=== PATIENT | male | born 1995 | race Caucasian/White ===

== ENCOUNTER 2017-11-08 13:01 | Emergency (ER) | payer SELFPAY ==
[2017-11-08 13:12] VITALS: BP 126/85; PULSE 64; TEMP 98; BMI 25.1
--- NOTE | 2017-11-08 13:30 | PDOC ---
History of Present Illness - General Chief Complaint: Injury Stated Complaint: RT FINGER INJURY Time Seen by Provider: 11/08/17 13:14 History Source: Patient Exam Limitations: No Limitations - History of Present Illness Initial Comments: 11/08/17 13:50 2-year-old male presents the ED with complaints of right thumb pain since yesterday. Patient states was playing [employer] when he jammed his thumb into someone's knee causing it to bend backwards. Patient denies recent injury to the affected area and denies radiation of pain but states has jammed numerous fingers before and never had this much swelling and discomfort. Timing/Duration: 24 hours Severity: mild Associated Symptoms: reports: denies symptoms Past History - Travel Traveled outside of the country in the last 30 days: No - Past Medical History Allergies/Adverse Reactions: Allergies Allergy/AdvReac Type Severity Reaction Status Date / Time No Known Allergies Allergy Verified 11/08/17 13:12 Home Medications: Ambulatory Orders NK [No Known Home Medication] 11/08/17 COPD: No - Suicide/Smoking/Psychosocial Hx Smoking Status: No Smoking History: Never smoked Number of Cigarettes Smoked Daily: 0 Hx Alcohol Use: No Drug/Substance Use Hx: No Substance Use Type: None Patient Lives Alone: No Lives with/in: parents Review of Systems - Review of Systems Able to Perform ROS?: No Constitutional: No: Symptoms Reported Musculoskeletal: Yes: Joint Pain (thumb), Joint Swelling (right thumb) Integumentary: Yes: Bruising *Physical Exam - Vital Signs Last Vital Signs Temp Pulse Resp BP Pulse Ox 98 F 64 18 126/85 99 11/08/17 13:09 11/08/17 13:09 11/08/17 13:09 11/08/17 13:09 11/08/17 13:09 - Physical Exam General Appearance: Yes: Nourished, Appropriately Dressed. No: Apparent Distress Extremity: positive: Normal Capillary Refill, Tender (over generalized right first digit). negative: Normal Inspection, Normal Range of Motion (unable to flex digit) Integumentary: positive: Swelling (generalized right first digit), Ecchymosis Procedures - Splinting Splint Location: Right: Finger Pre-Proc Neuro Vasc Exam: normal Hand-Made Type: metal splint Post-Proc Neuro Vasc Exam: normal Carlos Bandage: 3" Sling: No Good repositioning: Yes ED Treatment Course - RADIOLOGY Radiology Studies Ordered: Category Date Time Status FINGER(S) RIGHT [RAD] Stat Radiology 11/08/17 13:19 Ordered Medical Decision Making - Medical Decision Making 11/08/17 13:34 Patient right thumb injury concerning for fracture. Patient ordered for x-ray. 11/08/17 13:55 X-ray shows proximal phalanx fracture of the right first digit splint applied. Patient to follow up with Dr. Dowd on Thursday at 11:30 *DC/Admit/Observation/Transfer Diagnosis at time of Disposition: Proximal phalanx fracture of finger Qualifiers: Encounter type: initial encounter Finger: thumb Fracture type: closed Fracture alignment: nondisplaced Laterality: right Qualified Code(s): S62.514A - Nondisplaced fracture of proximal phalanx of right thumb, initial encounter for closed fracture - Discharge Dispostion Disposition: HOME Condition at time of disposition: Good - Referrals Referrals: Tobias Dowd MD [Staff Physician] - - Patient Instructions Printed Discharge Instructions: DI for Finger Fracture Additional Instructions: Keep finger elevated and apply ice as much you can tolerate for the next 2-3 days. Please take Motrin 600 mg every 8 hours for inflammation and discomfort. please also follow up with Dr. Dowd Thursday 11:30. - Post Discharge Activity
== END 2017-11-08 13:58 | disposition home or self-care (01) ==
LOC: JERFT 13:01
PROC: 2W3GX1Z Immobilization of Right Thumb using Splint (ICD-10-PCS; principal; 2017-11-08)
DX: S62.514A Nondisplaced fracture of proximal phalanx of right thumb, initial encounter for closed fracture (principal); W51.XXXA Accidental striking against or bumped into by another person, initial encounter; Y93.67 Activity, basketball; Y92.310 Basketball court as the place of occurrence of the external cause; Y99.8 Other external cause status
CPT/HCPCS: 73140-TC-RT-FY; 99281-25

== ENCOUNTER 2018-07-16 16:39 | Emergency (ER) | payer OTHER ==
[2018-07-16] MEDS ORDERED: SODIUM CHLORIDE 1,000 ML IV STA (17:26)
[2018-07-16] MEDS ORDERED: FAMOTIDINE 20 MG/50 ML IVPB 20 MG/50 ML MG IVPB ONE ×2 (17:26→17:44)
[2018-07-16] MEDS ORDERED: methylPREDNISolone NA SUCC 125 MG/2 ML VIAL IVPB ONE (17:26)
[2018-07-16] MEDS ORDERED: ACETAMINOPHEN 325 MG TABLET (FP) PO ONE (17:26)
[2018-07-16 17:27] VITALS: TEMP 100.6; BMI 23.6
--- NOTE | 2018-07-16 17:27 | PDOC ---
Rapid Medical Evaluation Chief Complaint: Allergic Reaction Time Seen by Provider: 07/16/18 17:21 Medical Evaluation: Allergies Allergy/AdvReac Type Severity Reaction Status Date / Time No Known Allergies Allergy Verified 11/08/17 13:12 07/16/18 17:22 c/o allergic reaction to possibly food ate this morning as per patient. reports throat pain and trouble swallowing. yesterdaY WITH VOMITING. PE: patient hives to face, pharyngeal erythema breath sounds clear A: allergic reaction/ anaphylaxis P: labs IV benadryl ; solumedrol pepcid patient to the Er for further management of care. Discharge Disposition - Diagnosis Allergic urticaria Anaphylaxis Qualifiers: Encounter type: initial encounter Qualified Code(s): T78.2XXA - Anaphylactic shock, unspecified, initial encounter - Referrals Referrals: Kevon Razo MD [Primary Care Provider] - - Patient Instructions - Post Discharge Activity
[2018-07-16] MEDS ORDERED: methylPREDNISolone NA SUCC 125 MG/2 ML VIAL ONE ×2 (17:35)
[2018-07-16] MEDS ORDERED: ACETAMINOPHEN 325 MG TABLET (FP) ONE (17:43)
[2018-07-16 17:46] LABS: BASO % 0.4 % (0-2.0); EOS % 0.1 % (0-4.5); HEMATOCRIT 50.5 % (35.4-49); HEMOGLOBIN 16.9 GM/dL (11.7-16.9); LYMPH % 9.3 % (8-40); MCH 29.2 pg (25.7-33.7); MCHC 33.4 g/dl (32.0-35.9); MEAN CELL VOLUME 87.5 fl (80-96); MEAN PLT VOLUME 9.6 fl (7.5-11.1); MONO % 5.1 % (3.8-10.2); NEUT % 85.1 % (42.8-82.8); PLATELET COUNT 223 K/MM3 (134-434); RBC 5.77 M/mm3 (4.00-5.60); RDW 12.8 % (11.9-15.9); WHITE BLOOD COUNT 12.4 K/mm3 (4.0-10.0)
[2018-07-16] MEDS ORDERED: ALBUTEROL SO4 2.5/IPRATROPIUM 0.5 INH SOL 3 ML VIAL.NEB. NEB ONE ×2 (17:51→17:57)
[2018-07-16 18:04] LABS: ANION GAP 12 MMOL/L (8-16); BLOOD UREA NITROGEN 21 mg/dL (7-18); CALCIUM 9.3 mg/dL (8.5-10.1); CHLORIDE 98 mmol/L (98-107); CO2 27 mmol/L (21-32); CREATININE 1.2 mg/dL (0.55-1.3); GLUCOSE,RANDOM 96 mg/dL (74-106); POTASSIUM 3.7 mmol/L (3.5-5.1); SODIUM 137 mmol/L (136-145)
[2018-07-16] MEDS ORDERED: ONDANSETRON 4 MG/2 ML VIAL IVPUSH ONE (18:12)
[2018-07-16] MEDS ORDERED: ONDANSETRON 4 MG/2 ML VIAL ONE (18:15)
[2018-07-16] MEDS ORDERED: EPINEPHrine/PF 1 MG/1 ML (1:1,000) AMPULE IM ONE (18:21)
--- NOTE | 2018-07-16 18:22 | PDOC ---
Attending Attestation - Resident Resident Name: JoaquinRonaldo - ED Attending Attestation I have performed the following: I have examined & evaluated the patient, The case was reviewed & discussed with the resident, I agree w/resident's findings & plan, Exceptions are as noted - HPI HPI: 07/16/18 18:10 22 yo male h/o allergic reactions in the past ( last 2 years ago) here with c/o 24 hours n/v/ d. throughout the night started having urticarial rash, welts, face neck and trunk. back. no difficulty breathing, but feels throat is sore. no new known food triggers, tolerated po today. c/o chills. and mild headache. no new meds. no new lotion or detergent. did not take anything prior to arrival. unsure what caused his allergic reaction 2 years ago, had epi pen which he has since lost. no lip or tongue swelling. - Physicial Exam PE: 07/16/18 18:14 awake alert . severe urticarial / welts rash over face, trunk and back. no uvular edema. no lip swelling. no tongue swelling. no lip swelling. lung decreased expiration at bases. no audible wheezing. abd soft nt nd. ext wwp. skin see description above. - Medical Decision Making 07/16/18 18:22 22 yo male with n/v now urticarial rash. concerns for allergic reaction anaphylaxis. unknown exposure. also possible viral exanthem. no sick contacts. no travel. plan pepcid, benadryl, solumedrol. will give epe as concerns n/v may be anaphylactic equivalent. zofran. reasses after observation.
[2018-07-16] MEDS ORDERED: EPINEPHrine/PF 1 MG/1 ML (1:1,000) AMPULE ONE (18:26)
[2018-07-16] MEDS: EPINEPHrine 1:1,000 0.3 MG/0.3 ML SYR IM ONE ×2 (18:29→18:31)
[2018-07-16 18:46] VITALS: BP 127/78; PULSE 98
--- NOTE | 2018-07-16 22:03 | PDOC ---
History of Present Illness - General Chief Complaint: Allergic Reaction Stated Complaint: Allergic Reaction Time Seen by Provider: 07/16/18 17:21 History Source: Patient Exam Limitations: No Limitations - History of Present Illness Initial Comments: 07/16/18 22:05 22 yo M with no pmhx presents to the ED with hives, SOB, and nausea/vomiting. Per the patient, he states he had vomiting commence yesterday in the afternoon while at work. He denies eating unusual food products. The patient subsequently developed hives during the night that spread from the head to the trunk, right arm, back, and groin area by 12pm today. He starting having headaches and felt feverish from 12 pm onwards. Endorses the following: throat pain, generalized itch throughout body, and headaches. Denies the following: recent lotion change , recent medication change, recent job/living arrangement change, tongue swelling, and muffled voice. His last attack was 2 years ago and was worked up and a cause was not found. He states he used an epi-pen then, but does not have one currently now. Pmhx: None Shx: right thumb surgery Meds: None Allergies: NKDA Social hx: Denies tobacco and alcohol use. Endorses marijuana use with last use 1 week ago Past History - Past Medical History Allergies/Adverse Reactions: Allergies Allergy/AdvReac Type Severity Reaction Status Date / Time No Known Allergies Allergy Verified 07/16/18 17:21 Home Medications: Ambulatory Orders Diphenhydramine HCl 25 mg PO QID #28 capsule 07/16/18 Epinephrine [Epipen] 0.3 mg IJ PRN #1 auto.injct 07/16/18 predniSONE [Deltasone -] 40 mg PO DAILY #3 tablet 07/16/18 COPD: No - Suicide/Smoking/Psychosocial Hx Smoking Status: No Smoking History: Never smoked Number of Cigarettes Smoked Daily: 0 Hx Alcohol Use: No Drug/Substance Use Hx: No Substance Use Type: None Review of Systems - Review of Systems Able to Perform ROS?: Yes Is the patient limited Swedish proficient: No Constitutional: Yes: Fever. No: Chills, Diaphoresis HEENTM: Yes: Throat Pain, Throat Swelling. No: Recent change in vision, Nose Pain, Mouth Pain, Mouth Swelling Respiratory: No: Shortness of Breath Cardiac (ROS): No: Chest Pain, Lightheadedness, Palpitations, Syncope, Chest Tightness ABD/GI: Yes: Diarrhea, Nausea, Vomiting. No: Constipated, Rectal Bleeding, Tarry Stools : No: Burning, Dysuria, Hematuria Musculoskeletal: No: Back Pain Integumentary: Yes: Rash (uritcaria throughout body) Neurological: No: Headache, Numbness, Paresthesia, Tingling, Tremors, Ataxia Psychiatric: No: Stressors Endocrine: No: Unexplained Weight Gain Hematologic/Lymphatic: No: Anemia *Physical Exam - Vital Signs Last Vital Signs Temp Pulse Resp BP Pulse Ox 100.6 F H 98 H 18 127/78 98 07/16/18 17:22 07/16/18 18:45 07/16/18 18:45 07/16/18 18:45 07/16/18 18:45 - Physical Exam General Appearance: Yes: Nourished, Appropriately Dressed, Other (looks uncomfortable) HEENT: positive: EOMI, MCKENNA, Normal Voice, Symmetrical. negative: Normal ENT Inspection, TMs Normal, Pharynx Normal (erythema in the posterior arches), Tonsillar Exudate, Tonsillar Erythema, Nasal Congestion, Rhinorrhea, Sinus Tenderness Neck: positive: Trachea midline. negative: Lymphadenopathy (R), Lymphadenopathy (L) Respiratory/Chest: positive: Lungs Clear, Decreased Breath Sounds. negative: Chest Tender, Respiratory Distress, Accessory Muscle Use, Rhonchi, Stridor, Wheezing, Hyperresonant Cardiovascular: positive: Regular Rhythm, S1, S2, Tachycardia. negative: Systolic Murmur Gastrointestinal/Abdominal: positive: Normal Bowel Sounds, Flat, Soft. negative : Tender, Pulsatile Mass Lymphatic: negative: Adenopathy Musculoskeletal: positive: Normal Inspection. negative: CVA Tenderness Extremity: positive: Normal Capillary Refill, Normal Inspection, Normal Range of Motion. negative: Tender Integumentary: positive: Dry, Hives (face (largest on left forehead), bilateral arms, chest, abdomen, back, and groin) Neurologic: positive: beef grader II-XII NML intact, Fully Oriented, Alert, Normal Mood/ Affect, Normal Response, Motor Strength 5/5 ED Treatment Course - LABORATORY CBC & Chemistry Diagram: 07/16/18 17:35 07/16/18 17:35 - ADDITIONAL ORDERS Additional order review: Laboratory Results 07/16/18 17:35 Sodium 137 Potassium 3.7 Chloride 98 Carbon Dioxide 27 Anion Gap 12 BUN 21 H Creatinine 1.2 Creat Clearance w eGFR > 60 Random Glucose 96 Calcium 9.3 07/16/18 17:35 RBC 5.77 H MCV 87.5 MCHC 33.4 RDW 12.8 MPV 9.6 Neutrophils % 85.1 H Lymphocytes % 9.3 D Monocytes % 5.1 Eosinophils % 0.1 D Basophils % 0.4 - Medications Given in the ED: ED Medications Discontinued Medications Generic Name Dose Route Start Last Admin Trade Name Ulysses PRN Reason Stop Dose Admin Acetaminophen 650 mg 07/16/18 17:26 07/16/18 17:45 Tylenol - PO 07/16/18 17:27 650 mg ONCE ONE Administration Albuterol/Ipratropium 1 amp 07/16/18 17:51 07/16/18 18:00 Duoneb - NEB 07/16/18 17:52 1 amp ONCE ONE Administration Diphenhydramine HCl 50 mg 07/16/18 17:26 07/16/18 17:39 Benadryl Injection - IVPB 07/16/18 17:27 50 mg ONCE ONE Administration Epinephrine 0.3 mg 07/16/18 18:14 07/16/18 18:31 Epipen 0.3mg - IM 07/16/18 18:15 Not Given ONCE ONE Epinephrine HCl 300 mcg 07/16/18 18:21 07/16/18 18:30 Epinephrine 1:1000 P/F - IM 07/16/18 18:22 300 mcg ONCE ONE Administration Famotidine/Sodium Chloride 20 mg in 50 mls @ 100 mls/hr 07/16/18 17:26 17:49 Pepcid 20 Mg Premixed Ivpb - IVPB 07/16/18 17:55 100 mls/hr ONCE ONE Administration Sodium Chloride 1,000 mls @ 1,000 mls/hr 07/16/18 17:26 07/16/18 17:39 Normal Saline - IV 07/16/18 18:25 1,000 mls/hr ASDIR STA Administration Methylprednisolone Sodium Succinate 125 mg 07/16/18 17:26 07/16/18 17:45 Solu-Medrol - IVPB 07/16/18 17:27 125 mg ONCE ONE Administration Ondansetron HCl 4 mg 07/16/18 18:12 07/16/18 18:18 Zofran Injection IVPUSH 07/16/18 18:13 4 mg ONCE ONE Administration Medical Decision Making - Medical Decision Making 07/17/18 03:06 22 yo M with no pmhx presents to the ED with hives, SOB, and nausea/vomiting. Per the patient, he states he had vomiting commence yesterday in the afternoon while at work. Initial vitals: Intake & Output 07/14/18 07/15/18 07/16/18 07/17/18 23:59 23:59 23:59 23:59 Weight 72.575 kg Initial Vital Signs Temp Pulse Resp BP Pulse Ox 100.6 F H 135 H 19 127/74 96 07/16/18 17:22 07/16/18 17:22 07/16/18 17:22 07/16/18 17:22 07/16/18 17:22 Work up: urticaria: anaphylaxis (known vs unknown antigen exposure vs ?viral exanthem) vs allergic reaction vs contact dermatitis. Laboratory Tests 07/16/18 07/16/18 17:35 17:35 WBC 12.4 H RBC 5.77 H Hgb 16.9 Hct 50.5 H MCV 87.5 MCH 29.2 MCHC 33.4 RDW 12.8 Plt Count 223 D MPV 9.6 Absolute Neuts (auto) 10.5 H Neutrophils % 85.1 H Lymphocytes % 9.3 D Monocytes % 5.1 Eosinophils % 0.1 D Basophils % 0.4 Nucleated RBC % 0 Sodium 137 Potassium 3.7 Chloride 98 Carbon Dioxide 27 Anion Gap 12 BUN 21 H Creatinine 1.2 Creat Clearance w eGFR > 60 Random Glucose 96 Calcium 9.3 Denies sick contacts and recent travel. Was given pepcid, benadryl, and solumedrol in the emergency department. Given 1x duoneb since he sounded mild decreased breath sounds bilaterally. given 0.3 mg of epinephrine 1:1000. Also was given 4 mg of zofran for nausea control. After 3 hours, the swelling markedly improved, his throat itching subsided, and he stated he felt "much better". He was discharged with a prednisone course for 3 days at 40 mg, benadry , and epi-pen for home use. Dispo: Discharge *DC/Admit/Observation/Transfer Diagnosis at time of Disposition: Allergic urticaria Anaphylaxis Qualifiers: Encounter type: initial encounter Qualified Code(s): T78.2XXA - Anaphylactic shock, unspecified, initial encounter - Discharge Dispostion Disposition: HOME Decision to Admit order: No - Prescriptions Prescriptions: Diphenhydramine HCl 25 mg PO QID #28 capsule Epinephrine [Epipen] 0.3 mg IJ PRN #1 auto.injct predniSONE [Deltasone -] 40 mg PO DAILY #3 tablet - Referrals Referrals: Kevon Razo MD [Primary Care Provider] - - Patient Instructions Printed Discharge Instructions: DI for General Allergic Reactions Additional Instructions: You were seen in the emergency department for the evaluation of your hives and subsequent nausea, vomiting, and shortness of breath. It appeared on your history and physical exam you were having an allergic reaction. You were given steroids, benadryl, pepcid, and epinephrine. Your labs were within normal limits. Please follow up with your primary medical doctor within 24-48 hours after discharge. Please take the benadryl as prescribed. Please take 1 prednisone per day for 3 days. Please use the epi-pen when having another serious allergic reaction. Please return to the emergency department if you have worsening of breathing, chest pain, fever/chills, nausea/vomiting, and increased swelling. Thank you. - Post Discharge Activity
[2018-07-16] MEDS ORDERED: diphenhydrAMINE HCL 25 MG CAPSULE (FP) PO ONE ×2 (22:04→22:06)
== END 2018-07-16 22:51 | disposition home or self-care (01) ==
LOC: JER 16:39
PROC: 3E0337Z Introduction of Electrolytic and Water Balance Substance into Peripheral Vein, Percutaneous Approach (ICD-10-PCS; principal; 2018-07-16)
PROC: 3E033GC Introduction of Other Therapeutic Substance into Peripheral Vein, Percutaneous Approach (ICD-10-PCS; 2018-07-16)
PROC: 3E0F7GC Introduction of Other Therapeutic Substance into Respiratory Tract, Via Natural or Artificial Opening (ICD-10-PCS; 2018-07-16)
DX: T78.2XXA Anaphylactic shock, unspecified, initial encounter (principal); L50.0 Allergic urticaria
CPT/HCPCS: 36415; 80048; 85025; 99283-25; J7030

== ENCOUNTER 2021-08-23 21:40 | Emergency (ER) | payer BC, OTHER ==
[2021-08-23 21:47] VITALS: BMI 26.9
[2021-08-23] MEDS ORDERED: ACETAMINOPHEN 1000 MG/100 ML VIAL IVPB ONE (22:03)
[2021-08-23] MEDS ORDERED: ONDANSETRON 4 MG/2 ML VIAL IVPUSH ONE (22:03)
[2021-08-23] MEDS ORDERED: diphenhydrAMINE HCL 25 MG CAPSULE (FP) PO ONE ×2 (22:03→22:22)
[2021-08-23] MEDS ORDERED: LACTATED RINGERS SOLUTION 1000 ML INFUS.BAG IV ONE (22:03)
[2021-08-23] MEDS ORDERED: FAMOTIDINE 20 MG/50 ML IVPB 20 MG/50 ML MG IVPB ONE ×2 (22:03→22:23)
[2021-08-23] MEDS ORDERED: MAG HYDROX/AL HYDROX/SIMETH -MYLANTA- ORAL SUSPENSION PO ONE (22:03)
[2021-08-23] MEDS ORDERED: ACETAMINOPHEN INJECTION 100 ML IVPB ONE (22:22)
[2021-08-23] MEDS ORDERED: ONDANSETRON 4 MG/2 ML VIAL ONE (22:22)
[2021-08-23] MEDS ORDERED: MAG HYDROX/AL HYDROX/SIMETH 30 ML UNIT-DOSE CUP ONE (22:22)
[2021-08-23 22:50] LABS: BASO % 0.1 % (0-2.0); EOS % 0.1 % (0-4.5); HEMATOCRIT 46.9 % (35.4-49); HEMOGLOBIN 15.7 GM/dL (11.7-16.9); LYMPH % 6.9 % (8-40); MCH 28.8 pg (25.7-33.7); MCHC 33.6 g/dl (32.0-35.9); MEAN CELL VOLUME 85.9 fl (80-96); MEAN PLT VOLUME 9.1 fl (7.5-11.1); NEUT % 83.9 % (42.8-82.8); PLATELET COUNT 216 10^3/uL (134-434); RBC 5.46 M/mm3 (4.00-5.60); RDW 13.2 % (11.9-15.9); WHITE BLOOD COUNT 9.8 K/mm3 (4.0-10.0)
[2021-08-23] MEDS ORDERED: METOCLOPRAMIDE HCL INJECTION 10 MG/2 ML VIAL IVPB ONE (23:13)
[2021-08-23 23:16] LABS: BLOOD UREA NITROGEN 16.4 mg/dL (7-18); CALCIUM 9.3 mg/dL (8.5-10.1)
[2021-08-23 23:17] LABS: ALBUMIN 4.4 g/dl (3.4-5.0)
[2021-08-23 23:19] LABS: CREATININE 1.2 mg/dL (0.55-1.3)
[2021-08-23 23:21] LABS: BILIRUBIN,TOTAL 0.8 mg/dL (0.2-1); TOT PROT 8.1 g/dl (6.4-8.2)
[2021-08-23] MEDS ORDERED: METOCLOPRAMIDE HCL INJECTION 10 MG/2 ML VIAL ONE (23:32)
[2021-08-24 01:15] VITALS: BP 126/71; PULSE 87; TEMP 99.5
== END 2021-08-24 01:26 | disposition home or self-care (01) ==
LOC: JER 21:40
PROC: 3E0333Z Introduction of Anti-inflammatory into Peripheral Vein, Percutaneous Approach (ICD-10-PCS; principal; 2021-08-23)
PROC: 3E033GC Introduction of Other Therapeutic Substance into Peripheral Vein, Percutaneous Approach (ICD-10-PCS; 2021-08-23)
PROC: 3E033GC Introduction of Other Therapeutic Substance into Peripheral Vein, Percutaneous Approach (ICD-10-PCS; 2021-08-23)
DX: R11.2 Nausea with vomiting, unspecified (principal)
CPT/HCPCS: 36415; 80053; 83690; 85025; 99284-25; C9803; J0131; U0003; U0005

== ENCOUNTER 2021-08-24 06:36 | Emergency (ER) | payer BC ==
[2021-08-24] MEDS ORDERED: EPINEPHrine 1:1,000 0.3 MG/0.3 ML SYR IM ONE (06:41)
[2021-08-24] MEDS ORDERED: diphenhydrAMINE HCL 25 MG CAPSULE (FP) PO ONE ×2 (06:44→06:46)
[2021-08-24] MEDS ORDERED: methylPREDNISolone NA SUCC 125 MG/2 ML VIAL ONE (06:44)
[2021-08-24] MEDS ORDERED: methylPREDNISolone NA SUCC 125 MG/2 ML VIAL IVPB ONE (06:46)
[2021-08-24 07:02] VITALS: BMI 26.9
[2021-08-24] MEDS ORDERED: FAMOTIDINE 20 MG/50 ML IVPB 20 MG/50 ML MG IVPB ONE ×2 (07:15→07:48)
[2021-08-24 07:26] LABS: BASO % 0.2 % (0-2.0); HEMATOCRIT 46.6 % (35.4-49); HEMOGLOBIN 15.8 GM/dL (11.7-16.9); LYMPH % 15.8 % (8-40); MCH 29.1 pg (25.7-33.7); MCHC 33.9 g/dl (32.0-35.9); MEAN CELL VOLUME 85.9 fl (80-96); MEAN PLT VOLUME 9.5 fl (7.5-11.1); MONO % 4.5 % (3.8-10.2); NEUT % 79.5 % (42.8-82.8); PLATELET COUNT 216 10^3/uL (134-434); RBC 5.43 M/mm3 (4.00-5.60); RDW 13.2 % (11.9-15.9); WHITE BLOOD COUNT 7.6 K/mm3 (4.0-10.0)
[2021-08-24 07:43] LABS: ALBUMIN 3.9 g/dl (3.4-5.0); BLOOD UREA NITROGEN 16.7 mg/dL (7-18); CALCIUM 8.7 mg/dL (8.5-10.1)
[2021-08-24 07:46] LABS: CREATININE 1.2 mg/dL (0.55-1.3)
[2021-08-24 07:48] LABS: BILIRUBIN,TOTAL 0.8 mg/dL (0.2-1); TOT PROT 7.4 g/dl (6.4-8.2)
[2021-08-24] MEDS ORDERED: SODIUM CHLORIDE 0.9% 500 ML INFUS.BAG IV ONE (08:07)
[2021-08-24] MEDS ORDERED: ACETAMINOPHEN INJECTION 100 ML IVPB ONE (09:23)
[2021-08-24] MEDS ORDERED: ACETAMINOPHEN 1000 MG/100 ML VIAL IVPB ONE (09:24)
[2021-08-24 11:05] LABS: EPI CELLS 7 /uL (0-25.1); HYALINE CASTS 5 /uL (0-3.1); URINE APPEARANCE CLEAR; URINE BACTERIA 10 /uL (0-1359); URINE BILIRUBIN NEGATIVE (NEGATIVE); URINE COLOR DK YELLOW; URINE GLUCOSE (UA) NEGATIVE (NEGATIVE); URINE KETONE 2+ (NEGATIVE); URINE LEUK ESTERASE NEGATIVE (NEGATIVE); URINE NITRITE NEGATIVE (NEGATIVE); URINE PROTEIN 1+ (NEGATIVE); URINE RBC 8 /uL (0-23.9); URINE UROBILINOGEN 0.2 mg/dL (0.2-1.0); URINE WBC 16 /uL (0-25.8)
[2021-08-24 12:25] VITALS: BP 121/75; PULSE 82; TEMP 98.9
== END 2021-08-24 12:31 | disposition home or self-care (01) ==
LOC: JER 06:36
PROC: 3E033NZ Introduction of Analgesics, Hypnotics, Sedatives into Peripheral Vein, Percutaneous Approach (ICD-10-PCS; principal; 2021-08-24)
PROC: 3E033GC Introduction of Other Therapeutic Substance into Peripheral Vein, Percutaneous Approach (ICD-10-PCS; 2021-08-24)
PROC: 3E023NZ Introduction of Analgesics, Hypnotics, Sedatives into Muscle, Percutaneous Approach (ICD-10-PCS; 2021-08-24)
PROC: 3E033GC Introduction of Other Therapeutic Substance into Peripheral Vein, Percutaneous Approach (ICD-10-PCS; 2021-08-24)
DX: L50.0 Allergic urticaria (principal); T78.2XXA Anaphylactic shock, unspecified, initial encounter
CPT/HCPCS: 36415; 71045-TC-FY; 80053; 81003; 85025; 87804; 93005; 93010; 99284-25; J0131

== ENCOUNTER 2025-05-10 07:29 | Emergency (ER) | payer BC ==
[2025-05-10 07:38] VITALS: RESP 20; BMI 26.2
[2025-05-10] MEDS ORDERED: methylPREDNISolone NA SUCC 125 MG/2 ML VIAL ONE (08:04)
[2025-05-10] MEDS ORDERED: FAMOTIDINE 20 MG TABLET ONE (08:04)
[2025-05-10] MEDS: methylPREDNISolone NA SUCC 125 MG/2 ML VIAL IVPUSH ONE (08:14)
[2025-05-10] MEDS: FAMOTIDINE 10 MG TABLET PO ONE (08:14)
[2025-05-10 08:40] LABS: ABSOLUTE IMMATURE GRANULOCYTES 0.03 x10^3/uL (0.0-0.031); BASOPHILS # 0.02 x10^3/uL (0.01-0.08); EOSINOPHIL % 0.0 % (0.8-7.0); EOSINOPHILS # 0.00 x10^3/uL (0.04-0.54); MCHC 33.0 g/dl (32.3-36.5); MEAN CELL VOLUME 88.4 fl (79.0-92.2); MEAN PLT VOLUME 11.2 fl (9.4-12.4); MONOCYTE # 0.38 x10^3/uL (0.30-0.82); MONOCYTE % 4.4 % (5.3-12.2); RDW 12.4 % (11.9-15.3)
[2025-05-10 09:35] VITALS: BP 137/75; PULSE 83; TEMP 99.2
[2025-05-10 11:37] LABS: GLUCOSE,RANDOM 108.0 mg/dL (74-106); TOT PROT 7.0 g/dl (6.4-8.2)
[2025-05-10 11:38] LABS: CO2 18.0 mmol/L (21-32)
[2025-05-10 11:39] LABS: ALK PHOS 64.0 U/L (40-150)
[2025-05-10 11:42] LABS: SGOT/AST 55.0 U/L (5-34); SGPT/ALT 56.0 U/L (0-55)
[2025-05-10 11:43] LABS: CREATININE 1.08 mg/dL (0.55-1.3)
[2025-05-10 12:44] LABS: HCV DIAGNOSTIC IN-HOUSE W/RFLX NON-REACTIVE (NONREACTIVE); HIV INTERPRETATION NEGATIVE (NEGATIVE)
== END 2025-05-10 09:56 | disposition home or self-care (01) ==
LOC: JER 07:29
PROC: 3E033GC Introduction of Other Therapeutic Substance into Peripheral Vein, Percutaneous Approach (ICD-10-PCS; principal; 2025-05-10)
PROC: 3E033GC Introduction of Other Therapeutic Substance into Peripheral Vein, Percutaneous Approach (ICD-10-PCS; 2025-05-10)
DX: L50.0 Allergic urticaria (principal); R51.9 Headache, unspecified; R00.0 Tachycardia, unspecified
CPT/HCPCS: 36415; 80053; 83735; 85025; 86803; 87389; 99284-25